=== PATIENT | female | born 1955 | race Caucasian/White ===

== ENCOUNTER 2019-02-26 09:51 | Day surgery (SDC) | payer OTHER ==
[2019-02-25 09:20] VITALS: BMI 40.2
--- NOTE | 2019-02-25 15:30 | HP ---
HISTORY OF PRESENT ILLNESS: This is a 63-year-old female with a history of acid reflux. Her symptoms are worse over last 3 months. She complains of persistent heartburn_. She has been taking omeprazole and her symptoms persisted instead of taking the medication. The patient also has abdominal pain on and off. The pain is more like a tightness or fullness. It is felt over the upper abdomen. There is no chest pain. There is no significant dyspnea, orthopnea, or PND. The patient underwent EGD because of the persistent and worsening acid reflux symptoms. Because of age, she has also come for a colonoscopy for colon cancer screening. ALLERGIES: NONE. SOCIAL HISTORY: The patient does not smoke or drink alcohol. MEDICAL ILLNESS: 1. Obesity. 2. Bronchial asthma. 3. Chronic acid reflux. 4. Labile hypertension. 5. Hysterectomy. 6. Cholecystectomy. PHYSICAL EXAMINATION: GENERAL: The patient is obese. VITAL SIGNS: Pulse is 74, blood pressure 120/96. HEENT: Conjunctivae clear. NECK: Supple. No adenitis or thyromegaly noted. CARDIOVASCULAR: First and second heart sounds heard. LUNGS: Clear to auscultation. ABDOMEN: Soft. No organomegaly. No tenderness. No masses. ADMITTING DIAGNOSIS: 1. Chronic acid reflux-abdominal pain. 2. Colon cancer screening. PLAN: EGD and colonoscopy. Job ID: [id number] [facility]
[2019-02-26] MEDS ORDERED: Ketamine 50 MG/ML (10ML VIAL) ONE (11:14)
[2019-02-26] MEDS ORDERED: PROPOFOL 200 MG/20 ML VIAL ONE (13:02)
--- NOTE | 2019-02-26 13:12 | OP ---
DATE OF PROCEDURE: 02/26/2019 PROCEDURE PERFORMED: Esophagogastroduodenoscopy with biopsy. PREOPERATIVE DIAGNOSIS: A 63-year-old with chronic acid reflux. Her symptoms persisted or worsening over the last 3 months . The patient is undergoing EGD. POSTOPERATIVE DIAGNOSES: 1. Normal esophageal mucosa. 2. Small hiatal hernia. 3. Gastric ulcer with proximal stomach, which is superficial. DESCRIPTION OF PROCEDURE: The patient was placed on her left lateral position and was given sedation by Anesthesia Department. A Pentax video gastroscope under direct vision passed down the oropharynx past the GE junction into the stomach and subsequently into the descending duodenum. Although, the patient complained of severe acid reflux on upper endoscopy, the mucosa appeared normal throughout. The GE junction, no pathology. She had a small hiatal hernia. Did have a distal esophageal ring, which was nonobstructing. The fundus and cardia, no pathology. Over the proximal gastric body, the patient was found to have superficial gastric ulcer. The gastric antrum, incisura, no pathology. Biopsy obtained of the gastric antrum and gastric body. The duodenal bulb, descending duodenum, no pathology seen. The stomach decompressed and the scope removed. DISCHARGE PLANNING: This is a 63-year-old female with chronic acid reflux with worsening symptoms over the last 3 months. She came for an EGD because of the worsening acid reflux. She had EGD and biopsy of the gastric body and antrum. The esophageal mucosa appeared normal. She had gastric ulcer in the gastric body. She had colonic polypectomy x2. DISCHARGE RECOMMENDATION: 1. Resume all medicine as before. 2. Continue omeprazole as before. 3. Weight loss and diet restriction. 4. in the absence of any other symptoms, she will come back to me in 2 weeks. Job ID: [id number] [facility]
--- NOTE | 2019-02-26 15:07 | OP ---
DATE OF PROCEDURE: 02/26/2019 PREOPERATIVE DIAGNOSIS: A 63-year-old female undergoing colonoscopy for colon cancer screening. POSTOPERATIVE DIAGNOSES: 1. Sessile polyp, hepatic flexure. 2. Sessile polyp, sigmoid colon. 3. Left-sided diverticular disease with occasional diverticula over the proximal colon. PROCEDURE PERFORMED: Colonoscopy with polypectomy. DESCRIPTION OF PROCEDURE: The patient was placed on her left lateral position and was given sedation by Anesthesia Department. A rectal exam was done before the scope was advanced into the rectum. No lesions felt on rectal exam. A Pentax video colonoscope was introduced into the rectum and advanced all the way into the cecum. The prep is very good. The mucosa appears normal throughout the colon with normal vascular pattern. In the appendiceal orifice, ileocecal valve, and cecum, no pathology seen. In the ascending colon, no pathology seen. The hepatic flexure showed a sessile polyp. This was removed with snare cautery with good hemostasis. The transverse colon showed occasional diverticula. The splenic flexure, descending colon, and sigmoid colon showed scattered diverticular disease. A sessile sigmoid polyp was removed with snare cautery with good hemostasis. Rectum show hemorrhoids. Job ID: [id number] [facility]
== END 2019-02-26 12:40 | disposition home or self-care (01) ==
LOC: SDC 09:51
PROVIDERS: ATTEND Internal Medicine Gastroenterology
PROC: 0DB68ZX Excision of Stomach, Via Natural or Artificial Opening Endoscopic, Diagnostic (ICD-10-PCS; principal; 2019-02-26)
PROC: 0DBN8ZX Excision of Sigmoid Colon, Via Natural or Artificial Opening Endoscopic, Diagnostic (ICD-10-PCS; 2019-02-26)
PROC: 0DBL8ZZ Excision of Transverse Colon, Via Natural or Artificial Opening Endoscopic (ICD-10-PCS; 2019-02-26)
DX: Z12.11 Encounter for screening for malignant neoplasm of colon (principal); K21.9 Gastro-esophageal reflux disease without esophagitis; K63.5 Polyp of colon; D12.5 Benign neoplasm of sigmoid colon; K57.30 Diverticulosis of large intestine without perforation or abscess without bleeding; K64.9 Unspecified hemorrhoids; K44.9 Diaphragmatic hernia without obstruction or gangrene; K22.2 Esophageal obstruction; K25.9 Gastric ulcer, unspecified as acute or chronic, without hemorrhage or perforation; I10 Essential (primary) hypertension; J45.909 Unspecified asthma, uncomplicated; E66.9 Obesity, unspecified; Z68.41 Body mass index [BMI] 40.0-44.9, adult; Z90.710 Acquired absence of both cervix and uterus; Z90.49 Acquired absence of other specified parts of digestive tract; Z79.82 Long term (current) use of aspirin; Z79.51 Long term (current) use of inhaled steroids; Z79.899 Other long term (current) drug therapy
CPT/HCPCS: 88305; 88312